=== PATIENT | male | born 1975 | race Caucasian/White ===

== ENCOUNTER 2018-02-11 14:45 | Inpatient (IN) ==
--- NOTE | 2018-02-11 15:02 | PDOC ---
Nausea/Vomiting/Diarrhea HPI - General Chief Complaint: Nausea / Vomiting / Diarrhea Stated Complaint: nausea Date Seen by Provider: 02/11/18 Time Seen by Provider: 14:57 Source: POSITIVE: Patient Exam Limitations: POSITIVE: No limitations Nurse's Notes Reviewed & Considered: Yes - History of Present Illness Initial Comments: This is a well-developed, well-nourished, 42-year-old male who appears to be sick. Patient's chief complaint is abdominal pain in the left lower quadrant. Patient states he's been tapering off of alcohol after a long period of time of drinking a sixpack to a 24 pack of beer a day and the occasional liter bottle of rum. His last alcohol was 2 days ago at which time he drank 1 beer. He states he's been tapering for the last 5 days with 3 beers a day then 2 beers a day and then 1 beer and no B her for the last 2 days. Now he has abdominal pain in the left lower quadrant, some tremulousness, complaints of nausea and no diarrhea. He denies any headache or sore throat, no chest pain or shortness of breath, no hematuria or dysuria. He does admit to using marijuana but denies other drugs. Body Location Affected: REPORTS: Abdomen Timing: REPORTS: Unknown Duration: Unknown Severity: Moderate Quality: REPORTS: Cramping, "Pain", Sharpness, Stabbing Abdominal Pain Onset Location: REPORTS: Periumbilical Abdominal Pain Radiation: REPORTS: LLQ, Periumbilical Context: REPORTS: Other (Recent heavy alcohol consumption) Modifying Factors: improves with: Nothing Associated Symptoms: REPORTS: Vomiting, Abdominal Pain, Cramping, LLQ Pain, Periumbilical Pain Similar Symptoms Previously: No Recent Care Received: REPORTS: Denies Any Prior Injuries Related to Current Complaint?: No - Patient Home Medications Home Medications: Home Medications multivitamin tablet 1 tab PO 07/11/17 amlodipine 5 mg tablet 5 mg PO QHS #30 tab 08/22/17 atorvastatin 20 mg tablet 20 mg PO QDAY #30 tab 08/22/17 lisinopril 40 mg tablet 40 mg PO BID #60 tab 08/22/17 venlafaxine ER 75 mg capsule,extended release 24 hr 75 mg PO QDAY #30 cap 08/22/17 - Patient Allergies Allergies/Adverse Reactions: Allergies Allergy/AdvReac Type Severity Reaction Status Date / Time niacin Allergy SWELLING Verified 02/11/18 17:43 Past Medical History - heen HEENT History: Denies History Cardiovascular History: Hypertension, Hyperlipidemia Respiratory History: Home CPAP Use, Sleep Apnea, Snoring Gastrointestinal History: GERD Additional Gastrointestinal History: FEELS LIKE SOMETHING IS IN THE BACK OF HIS THROAT Genitourinary History: Denies History Endocrine History: Denies History Musculoskeletal History: Arthritis, Back Pain, Other (please comment) Prosthesis or Implant: Yes (LEFT KNEE AND LOWER LEFT LEG) Additional Musculoskeletal History: Hx of left total knee replacement. Neurological History: Denies History Blood Disorders: Denies History Psychiatric History: Depression Additional Psychiatric History: "I'M A RECOVERING ADDICT" History of Sexually Transmitted Diseases: No Cancer History: Denies History History of MDRO: No Other Type of MDRO: NO History of Other Communicable Diseases: No Alcohol Use: Heavy In the Past 12 Months, Have Used or Abuse Any Substance: None Previous Surgical History: Yes Type / Date of Surgery: HWR LEFT KNEE/ RIGOBERTO N Y/ LEFT LEG ORIF/ LEFT BICEP/ LEFT KNEE/ UNDESCENDED TESTICLE SX A CHILD Anesthesia Reactions: No Malignant Hyperthermia: No Significant Family History: No pertinent family hx Additional Family History: FATHER-LUNG CANCER. MOTHER-HEART DISEASE, DIABETES ROS - Limitations ROS Limitations: No Limitations Constitution: REPORTS: Weakness Cardiovascular: REPORTS: Denies Cardiac Symptoms Respiratory: REPORTS: Denies Resp Symptoms Neurological: REPORTS: Weakness Gastrointestinal: REPORTS: Abdominal Pain, Nausea, Vomitting Musculoskeletal: REPORTS: Muscle Aches Genitourinary: REPORTS: Denies Symptoms Eyes: REPORTS: Denies Symptoms ENT: REPORTS: Denies Symptoms Skin: REPORTS: Denies Skin Symptoms Lympathic: REPORTS: Denies Lympathic Symptoms Immunologic: POSITIVE: Denies Symptoms Psychiatric: POSITIVE: Anxiety, Depression Nausea/Vomiting/Diarrhea Exam - General Appearance General Appearance: POSITIVE: Alert, Cooperative, No Evidence of Trauma, Mild Distress - HEENT HEENT: POSITIVE: Head Inspection Nml, Eyes Inspection Nml, Ears Inspection Nml, Nose Inspection Nml, Oral/Dental Inspect. Nml, Pharynx Inspect. Nml, PERRL, EOMI - Neck Neck: POSITIVE: Supple, Normal Inspection, Non Tender - Respiratory Respiratory: POSITIVE: No Respiratory Distress, Breath Sounds Normal, Chest Non- Tender - Cardiovascular Cardiovascular: POSITIVE: Regular Rate and Rhythm, Heart Sounds Normal, Strong Pulses Peripheral Pulses: Radial (R): 4+ - Chest Chest: POSITIVE: Non Tender - Abdomen Abdomen: Soft: (All Quadrants), Normal Bowel Sounds: (All Quadrants), Denies Tenderness: (RUQ), (LUQ), (RLQ), No Splenomegaly: (All Quadrants), No Hepatomegaly: (All Quadrants), No Guarding: (All Quadrants), No Rebound: (All Qu adrants), No Palpable Pulse: (All Quadrants), No Palpabale Mass: (All Quadrants), No Distention: (All Quadrants), No Rigidity: (All Quadrants), Tenderness Noted: (LLQ) - Back Back: POSITIVE: Normal Inspection - Skin Skin: POSITIVE: Intact, Normal For Race, Warm, Dry, No Rash - Extremities Extremity: Non-Tender: (All Extremities), Normal ROM: (All Extremities), Normal Inspection: (All Extremities), Pelvis Stable: (All Extremities) - Neurological / Psychological Neurological: POSITIVE: Affect Apporpriate, Oriented X3, Motor Normal, Sensation Normal N/V/D Progress - Results Reviewed by me Xrays/CTs/US Reviewed by me: Yes Discussed with Radiologist: Yes Lab Results Reviewed by Me: Yes CBC and BMP: 02/11/18 15:15 02/11/18 15:15 Lab Results:: Laboratory Results 02/11/18 02/11/18 02/11/18 15:15 15:15 15:15 WBC 6.84 RBC 4.86 Hgb 13.9 L Hct 41.2 L MCV 84.8 MCH 28.6 MCHC 33.7 RDW Std Deviation 52.5 H RDW Coeff of Kashif 17.2 H Plt Count 228 MPV 11.1 Immature Gran % (Auto) 0.3 Neut % (Auto) 73.7 Lymph % (Auto) 17.1 Saunders % (Auto) 7.6 Eos % (Auto) 1.0 Baso % (Auto) 0.3 Immature Gran # (Auto) 0.02 Neut # (Auto) 5.04 Lymph # (Auto) 1.17 Saunders # (Auto) 0.52 Eos # (Auto) 0.07 Baso # (Auto) 0.02 WBC Morphology Comment Normal morphology Plt Morphology Comment Normal morphology RBC Morph Comment Normal morphology Sodium 134 L Potassium 4.4 Chloride 97 L Carbon Dioxide 20 L Anion Gap 17 BUN 49 H Creatinine 3.4 H Estimated GFR 20 BUN/Creatinine Ratio 14.41 Glucose 108 Calculated Osmolality 291.0 Calcium 9.7 Magnesium 2.2 Total Bilirubin 0.7 AST 71 H ALT 60 Alkaline Phosphatase 78 C-Reactive Protein 0.7 NT-Pro-B Natriuret Pep 19.7 Total Protein 8.6 H Albumin 5.0 H Globulin 3.6 Albumin/Globulin Ratio 1.30 Amylase 112 H Lipase 154 TSH 0.757 Ur Collection Type Urine Color Urine Clarity Urine pH Ur Specific [place] U Specif Grav (Refrac) Urine Protein Urine Glucose (UA) Urine Ketones Urine Occult Blood Urine Nitrate Urine Bilirubin Urine Urobilinogen Ur Leukocyte Esterase Ur Culture Indicated? Urine Opiates Screen Ur Buprenorphine Ur Oxycodone Screen Urine Methadone Screen Ur Propoxyphene Screen Barbiturate Screen U Tricyclic Antidepress Phencyclidine Screen Amphetamines Screen U Methamphetamines Scrn Benzodiazepines Screen Cocaine Screen U Marijuana (THC) Screen Serum Alcohol < 10 02/11/18 02/11/18 17:10 17:10 WBC RBC Hgb Hct MCV MCH MCHC RDW Std Deviation RDW Coeff of Kashif Plt Count MPV Immature Gran % (Auto) Neut % (Auto) Lymph % (Auto) Saunders % (Auto) Eos % (Auto) Baso % (Auto) Immature Gran # (Auto) Neut # (Auto) Lymph # (Auto) Saunders # (Auto) Eos # (Auto) Baso # (Auto) WBC Morphology Comment Plt Morphology Comment RBC Morph Comment Sodium Potassium Chloride Carbon Dioxide Anion Gap BUN Creatinine Estimated GFR BUN/Creatinine Ratio Glucose Calculated Osmolality Calcium Magnesium Total Bilirubin AST ALT Alkaline Phosphatase C-Reactive Protein NT-Pro-B Natriuret Pep Total Protein Albumin Globulin Albumin/Globulin Ratio Amylase Lipase TSH Ur Collection Type Clean catch urine Clean catch urine Urine Color Yellow Urine Clarity Clear Urine pH 5.5 Ur Specific [place] <=1.005 U Specif Grav (Refrac) 1.005 Urine Protein Negative Urine Glucose (UA) Negative Urine Ketones Trace A Urine Occult Blood Negative Urine Nitrate Negative Urine Bilirubin Negative Urine Urobilinogen 0.2 Ur Leukocyte Esterase Negative Ur Culture Indicated? Culture not set Urine Opiates Screen Negative Ur Buprenorphine Negative Ur Oxycodone Screen Negative Urine Methadone Screen Negative Ur Propoxyphene Screen Negative Barbiturate Screen Negative U Tricyclic Antidepress Negative Phencyclidine Screen Negative Amphetamines Screen Negative U Methamphetamines Scrn Negative Benzodiazepines Screen Negative Cocaine Screen Negative U Marijuana (THC) Screen Negative Serum Alcohol - Patient's Progress Pain Medication Addressed: POSITIVE: Yes Re-examine Time: 18:38 Status: POSITIVE: Improved MDM / ED Course: Patient was evaluated, an IV started, blood drawn and sent to the lab for studies, CT examination of his abdomen and pelvis were obtained. Findings: CT shows left nonobstructive intraparenchymal punctate stones. Urinalysis shows trace ketones. UDS is negative. CBC shows anemia with hemoglobin of 13.9 and hematocrit 41.2. CMP shows electrolyte dyscrasia and renal failure with sodium of 134, chloride of 97, CO2 of 20, BUN of 49, creatinine of 3.4, AST is 71, total protein of 9.6, albumin 5.0. Amylase is 112, lipase is 154. TSH is normal at 0.757. Blood alcohol is less than 10. Assessment: #1 abdominal pain. #2 renal stones. #3 acute renal failure. #4 anemia. Plan: Patient is being admitted by the hospitalist. He receives in the emergency room a liter of normal saline, a milligram of Ativan, and 4 mg of Zofran. - Consult Consult (If Yes, Name of Consulting MD & Time Called): Yes (Dr. James, 1835hrs) Consulting MD will see pt:: POSITIVE: [facility] [place] Ad[place] Counseled: POSITIVE: Patient, RE: Lab Results, RE: Radiology Results, RE: DX, RE: Need for F/U Patient Care Time - Estimated PCT Patient Care Time (In Minutes): 45 Vital Signs - Recent Vital Signs Vital Signs: Vital Signs (Last 8 hours) Temp Pulse Pulse Resp BP BP Pulse Ox 02/11/18 15:07 97 F 91 18 130/87 02/11/18 14:46 97.0 F 91 18 130/87 97 - VS Reviewed Vital Signs Reviewed: Yes Discharge Clinical Impression: Dehydration, Abdominal pain, Renal failure, Kidney calculus, Anemia Discharge Disposition: Admit to Inpatient Condition: Stable Date Decision to Admit to Inpatient: 02/11/18 Time Decision to Admit to Inpatient: 18:35
[2018-02-11] MEDS ORDERED: Sodium Chloride 0.9% 1,000 ML PRIMARY IV ONE ×3 (15:05→21:15)
[2018-02-11] MEDS ORDERED: LORazepam 2 MG/1 ML VIAL IVP ONE (15:05)
[2018-02-11] MEDS ORDERED: ONDANSETRON 4 MG/2 ML VIAL IVP ONE (15:05)
[2018-02-11 15:20] LABS: BASOPHILS # (AUTO) 0.02 10*3/UL; BASOPHILS % (AUTO) 0.3 % (0-1); EOSINOPHILS # (AUTO) 0.07 10*3/UL; Hematocrit [HCT] 41.2 % (42.0-52.0); Hemoglobin [HGB] 13.9 g/dL (14.0-18.0); LYMPHOCYTES # (AUTO) 1.17 10*3/uL; MEAN CORPUSCULAR HEMOGLOBIN 28.6 PG (27-31); MEAN CORPUSCULAR HGB CONC 33.7 g/dL (33-37); MEAN CORPUSCULAR VOLUME 84.8 FL (80-90); MEAN PLATELET VOLUME 11.1 FL (7.4-12.2); MONOCYTES # (AUTO) 0.52 10*3/UL (0.3-0.8); MONOCYTES % (AUTO) 7.6 % (5-15); NEUTROPHILS # (AUTO) 5.04 10*3/UL; NEUTROPHILS % (AUTO) 73.7 % (50-80); RED BLOOD COUNT 4.86 10^6/uL (4.70-6.10)
[2018-02-11 15:23] LABS: PLATELET MORPHOLOGY COMMENT NORMAL MORPHOLOGY (NORM); RBC MORPHOLOGY COMMENT NORMAL MORPHOLOGY (NORM); WBC MORPHOLOGY COMMENT NORMAL MORPHOLOGY (NORM)
[2018-02-11 15:32] LABS: BLOOD UREA NITROGEN 49 mg/dL (7-22); BUN/CREATININE RATIO 14.41 (6-20); LIPASE 154 IU/L (23-300)
[2018-02-11 17:25] LABS: BILIRUBIN,URINE NEGATIVE (NEG); CLARITY,URINE CLEAR (CLEAR); COLOR,URINE YELLOW (Y); GLUCOSE, URINE (UA) NEGATIVE (NEG); OCCULT BLOOD,URINE NEGATIVE (NEG); PH,URINE 5.5 (5.0-8.5); PROTEIN,URINE NEGATIVE (NEG); UROBILINOGEN,URINE 0.2 EU/dL (0.2)
[2018-02-11 17:26] LABS: URINE SAMPLE TYPE CLEAN CATCH URINE
--- NOTE | 2018-02-11 17:31 | DI ---
EXAM: XR Chest, 2 Views CLINICAL HISTORY: ITS.REASON myalgias Physician Notes: Tech Comments: TECHNIQUE: Frontal and lateral views of the chest. COMPARISON: None FINDINGS: Hardware: None. Lungs/pleura: Normal. No focal consolidation. No pleural effusion or pneumothorax. Heart/mediastinum: Normal. No cardiomegaly. Soft tissues: Unremarkable. Bones: No acute fracture. Mild degenerative changes of the spine. Upper abdomen: Normal. IMPRESSION: No acute disease identified.
--- NOTE | 2018-02-11 17:40 | DI ---
EXAM: CT Abdomen and Pelvis With Intravenous Contrast CLINICAL HISTORY: ITS.REASON LLQ pain Physician Notes: Tech Comments: TECHNIQUE: Axial computed tomography images of the abdomen and pelvis with intravenous contrast. COMPARISON: CT abdomen/pelvis on 10/29/2015. FINDINGS: Liver: Normal. No focal lesion. Spleen: Calcification in the spleen. No focal lesion. Gallbladder: Mild hyperdensity in the gallbladder likely represents stones/sludge. Pancreas: Normal. No acute inflammation. No mass. Adrenal glands: Normal. No mass. Kidneys: Punctate nonobstructing left renal stones. No hydronephrosis or ureteral stone. No mass. Bowel: Prior gastric bypass changes. Normal appendix. No bowel obstruction or inflammation. Urinary bladder: Distended bladder. No wall thickening or mass. Reproductive organs: Normal. Muscles: No mass. Subcutaneous tissues: Fat-containing left ventral hernia. Small fat- containing umbilical hernia. Peritoneal space: Normal. No free fluid. Lymph nodes: Normal. No lymphadenopathy. Vessels: Mild atherosclerotic changes. No aneurysm or dissection. Bones: Degenerative changes of the spine. Bilateral L2 pars defects without significant spondylolisthesis. No acute fracture or bony lesion. Lung bases: Normal. Other: Small hiatal hernia. IMPRESSION: Punctate nonobstructing left renal stones. No hydronephrosis or ureteral stone.
[2018-02-11 17:41] LABS: AMPHETAMINE SCREEN NEGATIVE (NEG); CANNABINOID SCREEN,URINE NEGATIVE (NEG); COCAINE SCREEN NEGATIVE (NEG); METHADONE URINE SCREEN NEGATIVE (NEG); METHAMPHETAMINES SCREEN,URINE NEGATIVE (NEG); OPIATE SCREEN,URINE NEGATIVE (NEG); URINE SAMPLE TYPE CLEAN CATCH URINE; URINE SPECIFIC GRAVITY - MAN 1.005
[2018-02-11 18:42] VITALS: BP 130/87; RESP 18; TEMP 97; O2SAT 97
[2018-02-11] MEDS ORDERED: ONDANSETRON 4 MG/2 ML VIAL IVP PRN (18:57)
[2018-02-11] MEDS ORDERED: LIDOCAINE HCL 2 % 10 ML JELLY URO-JECT TOPICAL PRN (18:57)
[2018-02-11] MEDS ORDERED: LORazepam Inj(ETOH withdrawal) 2 MG/ML VIAL IVP PRN (18:57)
[2018-02-11] MEDS ORDERED: ACETAMINOPHEN 325 MG TABLET PO PRN (18:57)
[2018-02-11] MEDS ORDERED: DOCUSATE 100 MG CAPSULE PO PRN (18:57)
[2018-02-11] MEDS ORDERED: CALCIUM CARBONATE 500 MG (TUMS) CHEWABLE TABLET PO PRN (18:57)
[2018-02-11] MEDS ORDERED: LORazepam 1 mg tab (ETOH withdrawal) PO PRN (18:57)
[2018-02-11] MEDS ORDERED: LIDOCAINE W/ SODIUM BICARB 0.5 ML SYR SUBD PRN (18:57)
[2018-02-11] MEDS ORDERED: [UNRECOGNIZED DRUG - OTHER] IM ONE (20:03)
[2018-02-11] MEDS: AmLODIPine Tab 5 MG TABLET PO SCH (20:48)
[2018-02-11] MEDS ORDERED: Influenza 18-19 Vaccine (6mo+) 60 MCG/0.5 ML SYRINGE IM ONE ×2 (21:02→21:46)
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
[2018-02-11] MEDS: Sodium Chloride 0.9% 1,000 ML PRIMARY IV SCH (22:44)
[2018-02-11] MEDS: LORazepam 1 MG TABLET PO SCH (22:44)
[2018-02-11] MEDS ORDERED: NICOTINE 21 MG /DAY PATCH TRANSDERM ONE (23:04)
[2018-02-12 05:00] LABS: BUN/CREATININE RATIO 22.94 (6-20)
[2018-02-12] MEDS: Sodium Chloride 0.9% 1,000 ML PRIMARY IV SCH ×3 (06:55→23:40)
[2018-02-12] MEDS: Patch Removal NICOTINE PATCH TRANSDERM SCH (09:00)
[2018-02-12] MEDS ORDERED: ATORVASTATIN 20 MG TABLET PO SCH (09:00)
[2018-02-12] MEDS ORDERED: NICOTINE 21 MG /DAY PATCH TRANSDERM SCH (09:00)
[2018-02-12] MEDS ORDERED: CYANOCOBALAMIN 1000 MCG/1 ML VIAL IM SCH (09:00)
[2018-02-12] MEDS: VENLAFAXINE XR 75 MG CAP PO SCH (09:55)
[2018-02-12] MEDS: Multivitamin Tab 1 TAB PO SCH (09:55)
[2018-02-12] MEDS: NICOTINE 21 MG /DAY PATCH TRANSDERM SCH (09:55)
[2018-02-12] MEDS: LORazepam 1 MG TABLET PO SCH ×3 (09:56→20:18)
--- NOTE | 2018-02-12 10:42 | PDOC(PROG) ---
Interval History: Doing much better today if it is lasting a beer and [employer] hard lemonade or 2 days ago. He is not scoring on the CIWA scale today. Denies chest pain nausea vomiting complains of some low back pain just chronic Objective : Data - Labs CBC and BMP: 02/11/18 15:15 02/12/18 04:07 Objective : Exam - General General Appearance: Cooperative - Respiratory Respiratory Exam: Clear to Auscultation - Bilaterally, Breathing Non Labored, Normal To Percussion, Normal to Percussion and Palpation - Cardiovascular Cardiovascular Exam: RRR, No Murmur, No Clicks, No Gallops, No Rubs, PMI Non- Displaced - GI/Abdominal GI/Abdominal Exam: Normal Bowel Sounds, Non Tender, Non Distended, Soft, No Masses, No Hepatomegaly, No Splenomegaly, No Organomegaly - Extremities Extremities Exam: No Clubbing Present, No Edema Present, No Cyanosis Present Assessment and Plan - Patient Problems (1) Alcohol withdrawal Current Visit: Yes Status: Acute Code(s): F10.239 - Alcohol dependence with withdrawal, unspecified Qualifiers: Complication of substance-induced condition: uncomplicated Qualified Code(s): F10.230 - Alcohol dependence with withdrawal, uncomplicated (2) Acute renal failure Current Visit: Yes Status: Acute Comment: Continue IV fluids this has improved since yesterday most likely prerenal discussed with patient and nursing Code(s): N17.9 - Acute kidney failure, unspecified Qualifiers: Acute renal failure type: unspecified Qualified Code(s): N17.9 - Acute kidney failure, unspecified (3) Alcohol abuse Current Visit: Yes Status: Acute Comment: Continue CIWA scale continue hydration did not score today hopefully he will not detox unless it will start at a later date since his last alcohol use was 2 days ago Code(s): F10.10 - Alcohol abuse, uncomplicated (4) Hypertension Current Visit: Yes Status: Chronic Comment: Controlled hold Aman since patient has renal failure Code(s): I10 - Essential (primary) hypertension Qualifiers: Hypertension type: essential hypertension Qualified Code(s): I10 - Essential (primary) hypertension (5) Hyperlipidemia Current Visit: Yes Status: Chronic Code(s): E78.5 - Hyperlipidemia, unspecified Qualifiers: Hyperlipidemia type: mixed hyperlipidemia Qualified Code(s): E78.2 - Mixed hyperlipidemia (6) Depression Current Visit: Yes Status: Chronic Code(s): F32.9 - Major depressive d isorder, single episode, unspecified Qualifiers: Depression Type: major depressive disorder Major depression recurrence: recurrent Active/Remission status: in partial remission Qualified Code(s): F33.41 - Major depressive disorder, recurrent, in partial remission
[2018-02-12] MEDS: oxyCODONE-ACETAMINOPHEN 5-325 TAB PO PRN ×2 (11:45→18:18)
[2018-02-12] MEDS: AmLODIPine Tab 5 MG TABLET PO SCH (20:18)
[2018-02-13] MEDS: Sodium Chloride 0.9% 1,000 ML PRIMARY IV SCH (07:09)
[2018-02-13] MEDS: NICOTINE 21 MG /DAY PATCH TRANSDERM SCH (08:28)
[2018-02-13] MEDS: VENLAFAXINE XR 75 MG CAP PO SCH (08:31)
[2018-02-13] MEDS: Multivitamin Tab 1 TAB PO SCH (08:31)
[2018-02-13] MEDS: LORazepam 1 MG TABLET PO SCH (08:31)
[2018-02-13 08:42] LABS: BLOOD UREA NITROGEN 15 mg/dL (7-22); SERUM ALBUMIN 3.4 g/dL (3.5-4.8)
[2018-02-13] MEDS: Patch Removal NICOTINE PATCH TRANSDERM SCH (09:06)
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
== END 2018-02-13 14:48 | disposition home or self-care (01) | DRG 641 ==
LOC: ER 14:45 → MED/SURG 18:41
PROVIDERS: ADMIT Family Medicine; ATTEND Family Medicine